=== PATIENT | male | born 1970 | race Caucasian/White ===

== ENCOUNTER → 2016-09-27 | Outpatient (CLI) | payer OTHER ==
[~2016-09-27] MED LIST: ANORO ELLIPTA1 EACH INH; FLAGYL250 M1 PO; MONTELUKAST SOD10 MG PO; NO MEDICATIONS
--- NOTE | ~2016-09-27 | CT57 ---
[facility] A Service of [facility] RADIOLOGY TEXT RESULTS PATIENT: APULINE MULLINS LOCATION: [facility] : [birth year] UNIT #: [id number] AGE: [address]: Kelly Perez MD SEX: M ORDER DR: [id number] [facility]. [place], [place] [address] [id number] O MR#: [id number] [facility] #: [id number] NAME: PAULINE MULLINS : 1970 SEX: M STUDY DATE/TIME: 09/27/2016 13:27 UNIT: [facility] ROOM: STUDY DESCRIPTION: CT Chest Wo Cont Attending Physician: Kelly Perez M.D. Referring Physician: Kelly Perez M.D. Ordering Physician: Kelly Perez M.D. Primary Care Physician: Florence Haider A.P.R.N. MEDICAL IMAGING REPORT This report is preliminary unless electronic signature is present EXAM CT chest. INDICATIONS Pulmonary nodule. Right middle lobe nodule. Restaging. Shortness of air for one year. TECHNIQUE CT of the chest without contrast. Coronal and sagittal reconstructions were obtained. This CT exam was performed with one or more of the following radiation dose reduction techniques: automatic exposure control, adjustment of mA and/or kV according to patient size, and iterative reconstruction. COMPARISON CT chest dated 06/04/2015. FINDINGS A small right middle lobe pulmonary nodule is unchanged from the 06/04/2015 exam. This is indicative of a benign granuloma. The small nodule measures less than 4 mm. There is no new or suspicious pulmonary findings. No focal consolidation. There is severe emphysema. Mild parenchymal scarring in both lung apices is unchanged from the prior study. Central airways are patent. The thoracic aorta is normal in size. No pericardial or pleural effusion. There is a small cyst in the left hepatic lobe. The adrenal glands are normal. There is mild renal cortical atrophy. No acute osseous abnormalities. [facility] A Service of [facility] RADIOLOGY TEXT RESULTS PATIENT: PAULINE MULLINS LOCATION: [facility] : 68 UNIT #: [id number] AGE: [address]: Kelly Perez MD SEX: M ORDER DR: IMPRESSION 1. Benign chest CT. Small right middle lobe pulmonary nodule is unchanged from at least 06/04/2015 indicating a benign nodule. 2. Emphysema. Dictated by... Adams Beverly M.D. THIS IS AN ELECTRONICALLY VERIFIED REPORT Adams Beverly M.D. at 09/28/2016 1:24 PM TERA/radha TD: 09/28/2016 12:52 JOB #: [id number] MEDICAL IMAGING REPORT Page 1 of 1 COPY
== END | disposition home or self-care (01) ==
LOC: CCAT 12:49
DX: R91.1 Solitary pulmonary nodule (principal); J43.9 Emphysema, unspecified
CPT/HCPCS: 71250